=== PATIENT | male | born 1960 | race Caucasian/White ===

== ENCOUNTER → 2023-02-21 | Outpatient (CLI) | payer OTHER, SELFPAY ==
--- NOTE | 2023-02-21 06:22 | RAD_ITS ---
INDICATION: FOREIGN BODY EXAMINATION/TECHNIQUE: X-RAY - XR Orbits Clearance FB COMPARISON: None. FINDINGS: 2 views of the orbits. No radiopaque foreign body identified. RAD/Orbits for Foreign Body IMPRESSION: No radiopaque foreign body identified. Electronically Signed: Jessica Hampton MD at 6:46 EST ,
--- NOTE | 2023-02-21 06:44 | MRI_ITS ---
STUDY: MRI RIGHT SHOULDER REASON FOR EXAM: Male, 62 years old. Pain radiating from neck into shoulder, decreased range of motion. TECHNIQUE: Standardized fat and water weighted pulse sequences were obtained in all 3 orthogonal planes. COMPARISON: None. FINDINGS: There are complete full-thickness tears of the distal supraspinatus and infraspinatus tendons, with 4.1 cm medial tendon retraction. There is subscapularis tendinosis with tendon attrition. Normal teres minor tendon. There is moderate atrophy and fatty infiltration of the supraspinatus, infraspinatus, and subscapularis muscles. Normal teres minor muscle. There is a tiny glenohumeral joint effusion with fluid communicating into the subacromial-subdeltoid bursa. There is superior migration of the humeral head with respect to the glenoid with complete loss of the acromiohumeral space. There is medial dislocation of the long biceps tendon. Normal labrum. There is hypertrophic acromioclavicular arthrosis, with inferior osteophyte formation, with effacement of the torn end of the supraspinatus tendon (coronal T2 series 7 image 10). There is a Type II morphology (curved), with a neutral orientation. Normal visualized coracohumeral and coracoacromial ligaments. Normal quadrilateral space. Normal axillary space. Normal deltoid muscle. Normal trapezius muscle. MRI/Upper Ext Joint Only(Routine) IMPRESSION: Complete full-thickness tears of the distal supraspinatus and infraspinatus tendons, with 4.1 cm medial tendon retraction. Subscapularis tendinosis with tendon attrition. Moderate atrophy and fatty infiltration of the supraspinatus, infraspinatus, and subscapularis muscles. Hypertrophic acromioclavicular arthrosis, with inferior osteophyte formation, with effacement of the torn end of the supraspinatus tendon. Tiny glenohumeral joint effusion with fluid communicating into the subacromial-subdeltoid bursa. Medial dislocation of the long biceps tendon. Electronically Signed: Alfred Parada MD at 10:32 EST ,
== END | disposition home or self-care (01) ==
LOC: MRI 06:14
PROVIDERS: PCP Family Medicine
DX: M25.511 Pain in right shoulder (principal)
CPT/HCPCS: 70030; 73221

== ENCOUNTER → 2024-03-31 | Outpatient (CLI) | payer OTHER, SELFPAY ==
--- NOTE | 2024-03-31 10:31 | MRI_ITS ---
PROCEDURE: LOWER EXT JOINT ONLY (ROUTINE) REASON FOR EXAM: Sprain/effusion, pain. TECHNIQUE: MRI of the right knee without contrast. COMPARISON: None provided. FINDINGS No significant joint effusion is seen. No Aviles's or popliteal cyst is seen. Prior anterior cruciate ligament reconstruction is seen, with intact cruciate and collateral ligaments noted. Visualized extensor tendons appear intact. Tricompartmental right knee degenerative changes are noted, with moderate to severe articular cartilage thinning seen medially. Milder degenerative changes are seen of the lateral and patellofemoral compartments. [id number] articular cartilage thinning a portion of the lateral facet of the patella is noted, also with small fissure noted. There is at least an intrasubstance tear of the body of the lateral meniscus, probably also with oblique component extending to the tibial surface. The medial meniscus demonstrates severe tearing throughout, with partial sparing of the anterior horn. MRI/Lower Ext Joint Only (Routine) IMPRESSION: 1. Tricompartmental degenerative changes, most prominent at the medial compartm ent. 2. Severe medial meniscal tear. 3. Much milder lateral meniscal tear. 4. Prior anterior cruciate ligament reconstruction, which appears intact. Reading Location: [id number]
== END | disposition home or self-care (01) ==
LOC: MRI 10:25
PROVIDERS: PCP Family Medicine; Referring Provider Specialist; Visit Provider Specialist
DX: M25.561 Pain in right knee (principal); M25.461 Effusion, right knee; S83.8X1A Sprain of other specified parts of right knee, initial encounter
CPT/HCPCS: 73721